=== PATIENT | female | born 1945 | race Caucasian/White ===

== ENCOUNTER 2016-11-12 00:23 | Emergency (ER) | payer MEDICARE ==
[2016-11-12] MEDS ORDERED: ONDANSETRON ODT 4 MG TAB.RAPDIS ONE (00:49)
[2016-11-12 00:56] LABS: URINE MUCUS NONE SEEN (Up to 25%); URINE RBC NONE SEEN (0-5/hpf)
[2016-11-12] MEDS ORDERED: NORMAL SALINE 1,000 ML IV ONE (00:56)
[2016-11-12] MEDS ORDERED: KETOROLAC TROMETHAMINE 30 MG/ML VIAL ONE (00:56)
[2016-11-12] MEDS ORDERED: ONDANSETRON HCL 4 MG/2 ML VIAL ONE (00:56)
[2016-11-12] MEDS ORDERED: ACETAMINOPHEN 1,000 MG/100 ML VIAL IV ONE (00:57)
[2016-11-12 00:58] LABS: BASOPHILS 0.5 % (0.0-2.0); EOSINOPHILS 1.6 % (0.0-6.0); HEMATOCRIT 40.5 % (36.0-48.0); HEMOGLOBIN 13.6 g/dL (12.0-16.0); LYMPHOCYTES 17.9 % (20.0-40.0); LYMPHOCYTES# 0.9 X 10^3uL (0.8-3.8); MEAN CORPUS. HGB CONCENTRATION 33.6 g/dL (32.0-36.0); MEAN CORPUSCULAR HEMOGLOBIN 28.9 pg (29.0-35.0); MEAN PLATELET VOLUME 8.8 fL (7.4-10.4); MONOCYTES 1.5 % (2.0-10.0); NEUTROPHILS 78.5 % (54.0-75.0); NEUTROPHILS# 4.1 X 10^3uL (2.6-6.7); RED BLOOD COUNT 4.7 X 10^6uL (4.20-6.10); RED CELL DISTRIBUTION WIDTH 13.1 % (11.5-14.5); WHITE BLOOD COUNT 5.2 X 10^3uL (3.9-10.7)
[2016-11-12 00:59] LABS: EOSINOPHILS# 0.1 X 10^3uL (0.0-0.4); MONOCYTES# 0.1 X 10^3uL (0.2-1.0)
[2016-11-12 01:02] LABS: ALBUMIN 4.1 g/dL (3.5-5.0); BILIRUBIN, DIRECT 0.2 mg/dL (0.0-0.4); BILIRUBIN, TOTAL 0.6 mg/dL (0.2-1.3); CALCIUM 9.7 mg/dL (8.4-10.2); POTASSIUM 3.4 mmol/L (3.5-5.1); TOTAL PROTEIN 7.8 g/dL (6.3-8.2)
[2016-11-12 01:08] LABS: URINE APPEARANCE CLEAR; URINE COLOR YELLOW; URINE GLUCOSE NORMAL (NEGATIVE); URINE KETONE NEGATIVE (NEGATIVE); URINE LEUKOCYTE ESTERASE NEGATIVE (NEGATIVE); URINE NITRITE NEGATIVE (NEGATIVE); URINE PROTEIN 30mg/dL (1+) (NEG - TRACE); URINE UROBILINOGEN 0.2mg/dL (Normal) (NEG-1mg/dL)
[2016-11-12 01:09] LABS: URINE BILIRUBIN NEGATIVE (NEGATIVE); URINE BLOOD 10 Ery/uL (1+) (NEGATIVE)
[2016-11-12 01:12] LABS: TROPONIN I 0.013 ng/mL (0.00-0.034)
[2016-11-12 01:15] LABS: URINE AMORPHOUS SEDIMENT UP TO 25%/lpf (Up to 25%); URINE BACTERIA <10 ORGANISMS/hpf (<10/hpf); URINE SQUAMOUS EPITHELIAL CELL 0-5/hpf (<= 15/hpf); URINE WBC 0-4/hpf (0-4/hpf)
--- NOTE | 2016-11-12 02:38 | CT REPORT ---
HISTORY: Abdominal pain and fever. COMPARISON: None. TECHNIQUE: This examination was performed using automated exposure control, adjustment of mA or kV according to patient size, and/or use of iterative reconstruction technique. Axial CT imaging from the thoracic i nlet through the upper abdomen following administration of IV contrast during peak opacification of t he pulmonary arteries, multiplanar reformatted and 3-D images are evaluated. FINDINGS: There is no focal lung parenchymal nodule. There is no consolidation. There is no pleural effusion. T here is no pneumothorax. Cardiac structures and great vessels are unremarkable. There is no pathologic mediastinal or hilar ad enopathy. There is no focal bone lesion. The visualized organs of the upper abdomen are unremarkable. There is atherosclerosis of the thoracic aorta. No pulmonary embolism is identified. There is diffuse hepatic steatosis. A focal hypodensity is noted in the spleen, likely representing a small cyst. Adrenal glands are unremarkable. The right kidney is unremarkable. There is scarring of the left kidney. The gallbladder is unremarkable. A Swann catheter is noted within the bladder. There is mild thickening of the sigmoid colon with multiple diverticula seen at this site and mild pe ricolonic inflammatory changes. A 6.3 cm AP x 4.8 cm TR collection is noted adjacent to the left late ral margin of this loop of sigmoid colon with internal fluid and air levels. Moderate fecal loading i s noted. The appendix is normal well-visualized. There is no small bowel obstruction. IMPRESSION: 1. No pulmonary embolism. 2. Mild thickening of the sigmoid colon with multiple diverticula seen at this site and mild pericolo madalyn inflammatory changes. A 6.3 cm complex collection adjacent to this abnormal loop of sigmoid colon , likely representing sigmoid diverticulitis with associated perforation and abscess formation. Recom mend a follow-up colonoscopy after appropriate treatment to exclude an underlying lesion. 3. Hepatic steatosis. Final Electronic Signature: This report was electronically signed by Huyen Kirkland MD on 11/12/2016 2:36 AM. [email or web address] / / [employer] [phone]
[2016-11-12] MEDS ORDERED: LACTATED RINGERS 1,000 ML IV ONE (03:03)
[2016-11-12] MEDS ORDERED: PIPERACILLIN /TAZO 4.5 GM/10 ML VIAL IV ONE (03:04)
[2016-11-12] MEDS ORDERED: NORMAL SALINE 100 ML IV ONE (03:04)
--- NOTE | 2016-11-12 08:40 | ER NURSING DOCUMENTATION ---
Nurse's Notes [facility] Name:Soledad Adkins Age:71 yrs Sex:Female :1945 Arrival Date:11/12/2016 Time:00:23 Bed4 Private MD:Physician, No Diagnosis:intra-abdominal abscess, perforated diverticulitis Presentation: 11/12 00:33 Presenting complaint: Patient states: pt states shes had increased shortness of breath bw2 for the last few days. pt complains of generalized lower abdominal pain x 7 days. pt also complains of nausea. pt states that she was diagnosed with altitude sickness 2 days ago. Transition of care: Home. 00:33 Acuity: AMBROCIO 2 bw2 00:33 Method Of Arrival: EMS: 410 bw2 Triage Assessment: 00:36 General: Appears ill, Behavior is appropriate for age, flat. Pain: Complains of pain in bw2 lower abdomen. Respiratory: Reports shortness of breath at rest on exertion Onset: The symptoms/episode began/occurred yesterday, the patient has mild shortness of breath. GI: Reports lower abdominal pain, nausea. Historical: - Allergies: No known drug Allergies; - Home Meds: 1. amlodipine 5 mg oral tab 2. atorvastatin 10 mg oral tab 3. Salagen oral 4. Nexium Oral - PMHx: HYPERTENSION; - Tetanus: < 10 years. - Ebola Screening: : Patient negative for fever greater than or equal to 101.5 degrees Fahrenheit, and additional compatible Ebola Virus Disease symptoms. Patient denies exposure to infectious person. Patient denies travel to an Ebola-affected area in the 21 days before illness onset. No symptoms or risks identified at this time. . - Family history: No immediate family members are acutely ill. - Immunization history: Pneumococcal vaccine status is unknown, Flu Vaccine None. - Social history: Smoking status: Patient states was never smoker of tobacco. - Hospitalizations: : Patient was recently seen at. Screenin:38 Infectious Disease Risk None. Abuse screen: Denies threats or abuse. Nutritional bw2 screening: No deficits noted. Assessment: 00:38 Cardiovascular: Rhythm is regular. Respiratory: Airway is patent Respiratory effort is bw2 even, unlabored, Breath sounds are diminished bilaterally. Vital Signs: 00:37 BP 125 / 65; Pulse 97; Resp 19; Temp 103(O); Pulse Ox 90% on R/A; Weight 90.72 kg; bw2 Height 5 ft. 5 in. (165.10 cm); Pain 5/10; 01:40 Temp 98.6; bw2 03:22 BP 113 / 58; Pulse 83; Resp 18; Temp 98.7; Pulse Ox 96% ; bw2 00:37 Body Mass Index 33.28 (90.72 kg, 165.10 cm) bw2 ED Course: 00:24 Patient arrived in ED. em2 00:24 Physician, Sima is Private Physician. em2 00:28 Jose Francisco Garcia MD is Attending Physician. ak 00:33 Rosario Zapata is Primary Nurse. bw2 00:35 Triage completed. bw2 00:38 Valuables Remains with patient Patient has correct armband on for positive bw2 identification. Placed in gown. Side rails up X2. front desk monitor on. Pulse ox on. NIBP on. 00:39 Inserted peripheral IV: 20 gauge in right antecubital area and blood collected. bw2 00:53 Port Xray Completed. zara 00:53 EKG done. (by ED staff). em1 00:54 Swann cath inserted 16 Fr. Balloon inflated. To gravity drainage. Urine specimen mv collected. returned clear yellow urine. Patient tolerated well. 00:59 Inserted peripheral IV: 20 gauge in left antecubital area. bw2 01:08 Notified ED physician, Other physician notified: Dr Garcia critical lab value for D-Dimer mv with actual value of 447 No new orders received at this time. 01:[address] zara 01:[address] zara Administered Medications: 00:42 CANCELLED (Physician Discretion): Toradol 30 mg IVP once ak 00:45 Drug: Zofran 4 mg; Route: IVP; Infused Over: 2 mins; Site: right antecubital; bw2 01:39 Follow up: Response: No adverse reaction bw2 00:50 Drug: Ofirmev ; MAX of 1000 mg, give 20 mg/kg; Route: IV; Rate: calculated rate; bw2 Infused Over: 15 mins; Site: right antecubital; 01:36 Follow up: IV Status: Completed infusion bw2 00:55 Drug: NS 0.9% 2000 ml; Route: IV; Rate: bolus; Site: right antecubital; bw2 01:39 Follow up: IV Status: Completed infusion bw2 00:59 Drug: Toradol 15 mg; Route: IVP; Site: right antecubital; bw2 01:36 Follow up: Response: No adverse reaction bw2 03:02 Drug: Zosyn - Piperacillin-Tazobactam 4.5 grams; Route: IVPB; Site: left antecubital; bw2 03:02 Drug: LR - Lactated Ringers Solution 150 ml/hr; Route: IV; Rate: 150 ml/hr; Site: right bw2 antecubital; Intake: 03:03 IV: 2000ml; Total: 2000ml. bw2 Output: 03:03 Urine: 200ml (Swann); Total: 200ml. bw2 Outcome: 03:04 Transferred: Patient will be transferred to: [facility]. Facility bw2 Acceptance Time: November 12, 2016 at 03:04 Patient's face sheet was faxed to accepting facility. Face Sheet included patient's name, address, age, gender, contact information and insurance information. Patient will be transported by: [facility] ground. Nurse and Physician Charting and Notes were sent to Accepting Facility. All tests and/or procedures with results, if applicable, were sent to accepting facility. 03:11 ER care complete, transfer ordered by . nayeli 03:22 Condition: unchanged bw2 03:22 Report given to Viraj DSOUZA 03:22 Discharge Assessment: Patient awake, alert and oriented x 3. No cognitive and/or functional deficits noted. Patient verbalized understanding of disposition instructions. 05:12 Instructed on need for transfer bw2 05:12 Patient left the ED. bw2 Signatures: [facility], [facility] em1 [facility], [facility] em2 [facility] b[facility]2 Jose Francisco Garcia MD MD ak
--- NOTE | 2016-11-12 08:40 | ER PHYSICIAN DOCUMENTATION ---
Physician Documentation [facility] Name:Soledad Adkins Age:71 yrs Sex:Female :1945 Arrival Date:11/12/2016 Time:00:23 Bed4 Private MD:Physician, No ED Jose Francisco Orozco Disposition: 11/12 01:09 Critical Care:. ak Disposition: 11/12/16 03:11 Transfer ordered to [facility]. Diagnosis is intra-abdominal abscess, perforated diverticulitis. - Reason for transfer: Specialty. - Accepting physician is [facility]. - Condition is Fair. - Problem is new. - Symptoms have improved. COBRA Form completed? Transfer - Mode of Transportation Ambulance HPI: 00:40 This 71 yrs old Female presents to ER via EMS with complaints of Abdominal ak pain, fever, some shortness of breath. 00:40 The patient has shortness of breath at rest, present for over a week. Onset: The ak symptom(s)/episode began/occurred gradually. Duration: The symptoms are intermittent. The patient's shortness of breath is aggravated by nothing, is alleviated by nothing. Associated signs and symptoms: Pertinent positives: fever, Pertinent negatives: chest pain, non-productive cough, productive cough, diaphoresis, dizziness. 00:42 Severity of symptoms: At their worst the symptoms were severe in the emergency ak department the symptoms are unchanged. mainly c/o low abd pain and fever, states feels poorly, very tired. at bedside, he is asymptomatic per his report, no fever. neither has any known exposures. pt started with this sob, now having the fever and abd pain that started sometime over the past several days. no gu symptoms. last stool yest, normal. normal flatus. no trauma. called ems tonight b/c felt worse, constellation of symptoms was worrisome to her. no acute change, rather just worsening in general.. [place] vacation 1.5w ago. first to [place], sat to [facility], today is now wed. there to ED due to some sob. largely insidious onset. pt is very challenging historian at this time, states cannot recall length of flight but online is listed as 4h. no hx of dvt or pe. does have hx of sjogrens on pilocarpine. no known cad. no hx of cardiac dz of any kind. does have htn, hld. insidious onset sob once in [place], to ED in [place], d/c from there after feeling better, states now having fever, intermittent abd pain. hx of bowel perf 15y ago states cannot recall symptoms then so not sure if similar or not. denies cough, dysuria, sargent and she does not report feeling confused. no cellulitis, no trauma. no n/v. cannot elicit any anginal equivalent aside from c/o some mild to mod sob. . Historical: - Allergies: No known drug Allergies; - Home Meds: 1. amlodipine 5 mg oral tab 2. atorvastatin 10 mg oral tab 3. Salagen oral 4. Nexium Oral - PMHx: HYPERTENSION; - Tetanus: < 10 years. - Ebola Screening: : Patient negative for fever greater than or equal to 101.5 degrees Fahrenheit, and additional compatible Ebola Virus Disease symptoms. Patient denies exposure to infectious person. Patient denies travel to an Ebola-affected area in the 21 days before illness onset. No symptoms or risks identified at this time. . - Family history: No immediate family members are acutely ill. - Immunization history: Pneumococcal vaccine status is unknown, Flu Vaccine None. - Social history: Smoking status: Patient states was never smoker of tobacco. - Hospitalizations: : Patient was recently seen at. ROS: 00:52 Constitutional: Positive for chills, fatigue, fever, malaise. ak 00:52 Cardiovascular: Negative for chest pain, edema, orthopnea, palpitations, paroxysmal nocturnal dyspnea, acute changes. 00:52 Respiratory: Positive for shortness of breath, Negative for cough, dyspnea on exertion, hemoptysis, orthopnea, pleurisy, sputum production, wheezing, acute changes. 00:52 Abdomen/GI: Positive for abdominal pain, nausea, vomiting, Negative for diarrhea, constipation, abdominal cramps, abdominal distension, anorexia, dysphagia, hematemesis, rectal pain. 00:52 Back: Negative for pain at rest, pain with movement. 00:52 : Negative for urinary frequency, hematuria, flank pain, burning with urination, difficulty urinating, bladder incontinence, foul smelling urine, vaginal bleeding, vaginal discharge. 00:52 MS/extremity: Negative for acute changes. 00:52 Skin: Negative for discoloration, ecchymosis, rash. 00:52 Neuro: Negative for altered mental status, dizziness, gait disturbance, headache, hearing loss, loss of consciousness, numbness, seizure activity, speech changes, syncope, near syncope, tingling, tinnitus, tremor, visual changes, weakness, acute changes. 00:52 Endocrine: Negative for polydipsia, polyphagia, polyuria. 00:52 Hematologic/Lymphatic: Negative for abnormal bleeding, swollen nodes, petechiae, ecchymosis, asymmetric swelling or symptoms. 00:52 All other systems are negative. Exam: 00:54 Constitutional: The patient appears awake, febrile, uncomfortable. ak 00:54 Head/face: Exam is negative for contusion, deformity, ecchymosis, erythema. 00:54 Neck: ROM/movement: no acute changes, Meningeal signs: Kernig's sign is negative, Brudzinski's sign is negative, nuchal rigidity, is not appreciated. 00:54 Cardiovascular: Rate: normal, Rhythm: regular, Pulses: no pulse deficits are appreciated, Heart sounds: normal, Edema: is not appreciated. 00:54 Respiratory: mild tachypnea, no incr wob, good air mvmt, Respirations: labored breathing, is not present, asymmetrical chest movement, is not seen, nasal flaring, is not appreciated, paradoxical chest movement, is absent, prolonged exhalation, is not present, pursed lip breathing, is not present, shallow respirations, are not present, splinting, is not noted, tachypnea, that is mild, Breath sounds: are normal. 00:54 Abdomen/GI: Inspection: abdomen appears normal, Palpation: mild abdominal tenderness, in the suprapubic area, right lower quadrant and left lower quadrant, voluntary guarding, is not appreciated, involuntary guarding, is not appreciated. 00:54 Musculoskeletal/extremity: Extremities: all appear grossly normal, with no appreciated pain with palpation, no cellulitis. no edema. no wounds. . 00:54 Skin: pale warm dry skin. 00:54 Neuro: Orientation: is normal, Mentation: answers questions reasonably, does not know some answers, is conversant, she attributes situation to feeling poorly but she denies feeling confused or altered, Motor: is normal, Sensation: is normal. Vital Signs: 00:37 BP 125 / 65; Pulse 97; Resp 19; Temp 103(O); Pulse Ox 90% on R/A; Weight 90.72 kg; bw2 Height 5 ft. 5 in. (165.10 cm); Pain 5/10; 01:40 Temp 98.6; bw2 03:22 BP 113 / 58; Pulse 83; Resp 18; Temp 98.7; Pulse Ox 96% ; bw2 00:37 Body Mass Index 33.28 (90.72 kg, 165.10 cm) bw2 MDM: 00:28 Patient medically screened. ak 01:00 Differential diagnosis: pneumonia, pulmonary edema, Pulmonary Embolism Unstable Angina ak acute intra-abdominal infection or perforated bowel, ischemic bowel, ACS, STEMI. Antibiotic administration: Not indicated. Data reviewed: vital signs, nurses notes, lab test result(s), cardiac enzymes, CBC, electrolytes, hepatic panel, urinalysis, EKG, radiologic studies, CT scan, plain films, and as a result, I will admit patient. 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 Interpretation: hypoxia. ECG:. ED course: main pt complaint is abd pain and fever. improving c ivf, giving antipyretics. pending lab. carefully reviewed ekg, noted avr but actual st segment does not appear elev, repeat ekg no dynamic changes, will cont to follow, adding post leads, no meningismus, no resp, derm or other gi symptoms except pain, cont to follow closely. urosepsis vs other intraabd infxn vs PE vs ACS vs other. degree of fever would be unusual for PE or ACS but nonetheless consideration. no stuttering or evolving symptoms otherwise. . 02:05 ED course: 0205 further ekg then reveals closed qrs, no other therapies except ivf, ak tylenol and toradol. ?equipment? trop neg. dimer elev. no leukocytosis. gfr in 50s. pt improved, color improved, symptoms improved, hr normalized, now afebrile, distinctly better than earlier, pending ct pe prot and a/p results.. 02:47 ED course: 0247 rads states sigmoid thickening with pericolonic 6.3cm abscess c/w ak perforated diverticulitis, rec f/u colonoscopy later but currently will need eval by both gen surg and availability of IR, will therefore require transfer (no IR at [facility]), d/w pt and who consent to transfer, start zosyn and cont fluids, pt still much improved. pending acceptance from [facility].. 11/12 00:59 Order name: CBC AUTO DIF, MDIF/RMOR IF IND; Complete Time: : [facility] 11/12 01:06 Order name: LACTATE; Complete Time: : [facility] 11/12 01:07 Order name: BASIC METABOLIC PANEL; Complete Time: : [facility] 11/12 01:07 Order name: HEPATIC PANEL; Complete Time: : [facility] 11/12 01:07 Order name: LIPASE; Complete Time: : [facility] 11/12 01:08 Order name: DDIMER; Complete Time: [facility] 11/12 01:12 Order name: PROTIME/INR; Complete Time: 02:05 [facility] 11/12 01:13 Order name: TROPONIN I; Complete Time: 02:05 [facility] 11/12 01:16 Order name: UA W/ MICRO -CULTURE IF IND; Complete Time: 02:05 [facility] 11/12 02:25 Order name: INFLUENZA A/B [facility] 11/13 00:46 Order name: BLOOD CULTURE [facility] 11/13 00:46 Order name: BLOOD CULTURE [facility] 11/13 08:30 Order name: URINE CULTURE [facility] 11/12 02:40 Order name: CAT SCAN; CHEST ANGIO [id number] [facility] 11/12 11:38 Order name: CHEST; SINGLE VIEW [id number] [facility] 11/12 11:38 Order name: ABDOMEN; SINGLE VIEW [id number] [facility] 11/12 00:38 Order name: I & O; Complete Time: 00:57 ma 11/12 00:38 Order name: IV large bore X 2; Complete Time: 00:57 ma 11/12 00:38 Order name: NPO; Complete Time: 00:57 ma 11/12 00:38 Order name: Oxygen; Complete Time: 00:57 ma 11/12 00:38 Order name: Place Patient On Monitor; Complete Time: 00:57 ma 11/12 00:38 Order name: Pulse Ox Continuous; Complete Time: 00:57 ma 11/12 00:38 Order name: 12-lead EKG; Complete Time: 00:57 ma 11/12 00:38 Order name: Swann; Complete Time: 00:57 ak EC:00 Rate is 99 beats/min. Rhythm is regular. QRS [place] is Normal. TN interval is prolonged ak at 215 msec. QRS interval is prolonged at 132 msec. QT interval is prolonged at 507 msec. No Q waves. Clinical impression: sinus rhythm with wide qrs. repeat unchanged (initial 0027 repeat 0053). ant t wave deep inversions. . Interpreted by me. Dispensed Medications: 00:42 CANCELLED (Physician Discretion): Toradol 30 mg IVP once ak 00:45 Drug: Zofran 4 mg; Route: IVP; Infused Over: 2 mins; Site: right antecubital; bw2 01:39 Follow up: Response: No adverse reaction bw2 00:50 Drug: Ofirmev ; MAX of 1000 mg, give 20 mg/kg; Route: IV; Rate: calculated rate; bw2 Infused Over: 15 mins; Site: right antecubital; 01:36 Follow up: IV Status: Completed infusion bw2 00:55 Drug: NS 0.9% 2000 ml; Route: IV; Rate: bolus; Site: right antecubital; bw2 01:39 Follow up: IV Status: Completed infusion bw2 00:59 Drug: Toradol 15 mg; Route: IVP; Site: right antecubital; bw2 01:36 Follow up: Response: No adverse reaction bw2 03:02 Drug: Zosyn - Piperacillin-Tazobactam 4.5 grams; Route: IVPB; Site: left antecubital; bw2 03:02 Drug: LR - Lactated Ringers Solution 150 ml/hr; Route: IV; Rate: 150 ml/hr; Site: right 2 antecubital; Signatures: Rosario Zapata [facility] Jose Francisco Garcia MD MD ak
--- NOTE | 2016-11-12 10:05 | RADIOLOGY REPORT ---
A limited single portable view of the chest, without prior films for comparison , demonstrates the heart, vessels and lungs to be unremarkable. No infiltrate, fluid or pneumothorax is seen. IMPRESSION: Unremarkable limited single portable view of the chest. Please see CT scan report of the same date. MTDD
--- NOTE | 2016-11-12 10:06 | RADIOLOGY REPORT ---
A single view of the abdomen includes the lower chest and upper abdomen. Pelvic region is not included. The visualized bowel gas pattern appears unremarkable. Moderate retained fecal material is seen throughout the colon. No pathologic calcifications or free air are identified. IMPRESSION: Limited examination demonstrates moderate retained fecal material throughout the colon. Please see CT scan report from the same date. MTDD
== END 2016-11-12 05:13 | disposition short-term general hospital (02) ==
LOC: ER 00:23
DX: K57.20 Diverticulitis of large intestine with perforation and abscess without bleeding (principal); R06.02 Shortness of breath; R50.9 Fever, unspecified; R53.83 Other fatigue; R53.81 Other malaise; R11.2 Nausea with vomiting, unspecified; R10.84 Generalized abdominal pain; R00.0 Tachycardia, unspecified; I10 Essential (primary) hypertension; Z79.899 Other long term (current) drug therapy; Z99.89 Dependence on other enabling machines and devices; Z99.81 Dependence on supplemental oxygen; Z74.3 Need for continuous supervision; Z46.6 Encounter for fitting and adjustment of urinary device
CPT/HCPCS: 36415; 51702; 71010; 71275; 74000; 74177; 80048; 80076; 81001; 83605; 83690; 84484; 85025; 85379; 85610; 87040; 87086; 87449; 93005; 96365; 96375; 99285; A0425; A0429; J1885; J2405; J2543; J7030; J7120